=== PATIENT | female | born 1975 | race African-American/Black ===

== ENCOUNTER 2023-04-28 11:32 | Emergency (ER) | payer MEDICARE ==
[~2023-04-28] VITALS: Ht 165.1 cm; Wt 148.0 kg
[~2023-04-28 11:32] MED LIST: ALBU6.7H15 INH; DIAZ5TAB4 PO; IBUP-2029 PO; IBUP-2030 PO; TRAM50TA3 PO
[2023-04-28 11:34] VITALS: BP 0/0; PULSE 0; RESP 0; TEMP 96; O2SAT 0
== END 2023-04-28 15:04 ==
LOC: ER 11:32
DX: I46.9 Cardiac arrest, cause unspecified (principal); J45.909 Unspecified asthma, uncomplicated
CPT/HCPCS: 36680; 82962; 92950; 99291